=== PATIENT | female | born 1990 | race Caucasian/White ===

== ENCOUNTER 2018-01-13 21:15 | Emergency (ER) | payer BC ==
[2018-01-13 21:28] VITALS: RESP 18
[2018-01-13] MEDS ORDERED: OFLOXACIN 0.3% OPHTH DROPS 5 ML BOTTLE RIGHT EAR STA (22:56)
[2018-01-13] MEDS ORDERED: AMOXIC-POT CLAV 875MG STARTER 2 EACH TABLET PO STA (22:56)
[2018-01-13] MEDS ORDERED: IBUPROFEN 600 MG TAB PO STA (22:58)
--- NOTE | 2018-01-13 23:01 | ED ---
General Adult HPI - General Chief complaint: ENT Stated complaint: ear pain Time Seen by Provider: 01/13/18 22:17 Source: patient, RN notes reviewed Mode of arrival: ambulatory Limitations: no limitations - History of Present Illness Initial comments: 27-year-old female presents to the emergency department for a chief complaint of right ear pain 8 hours. Patient states she has been having congestion for the past week and started to develop ear pain earlier today. Patient states over the past few hours it has gotten worse. Patient admits to a sore throat and cough. Patient states she had a fever a few days ago but it has since resolved. Patient states the pain is radiating into her jaw. Patient has no other complaints at this time including shortness of breath, chest pain, abdominal pain, nausea or vomiting, headache, or visual changes. - Related Data Home Medications Medication Instructions Recorded Confirmed Ibuprofen [Motrin Ib] 800 mg PO TID PRN 01/13/18 01/13/18 Pseudoephedrine HCl [Sudafed] 30 mg PO Q4HR PRN 01/13/18 01/13/18 SUMAtriptan SUCC/NAPROXEN SOD 1 tab PO DAILY PRN 01/13/18 01/13/18 [Treximet 85-500 mg Tablet] Previous Rx's Medication Instructions Recorded Amoxicillin/Potassium Clav 1 tab PO Q12HR 10 Days #20 tab 01/13/18 [Augmentin 875-125 Tablet] Ofloxacin 0.3% Ophth Soln [Ocuflox 10 drops RIGHT EAR BID 7 Days ml 01/13/18 Ophth Soln] Allergies Allergy/AdvReac Type Severity Reaction Status Date / Time No Known Allergies Allergy Verified 01/13/18 21:54 Review of Systems ROS Statement: Those systems with pertinent positive or pertinent negative responses have been documented in the HPI. ROS Other: All systems not noted in ROS Statement are negative. Past Medical History Past Medical History: No Reported History History of Any Multi-Drug Resistant Organisms: None Reported Additional Past Surgical History / Comment(s): TENDON REPAIR RIGHT ANKLE Past Psychological History: No Psychological Hx Reported Smoking Status: Never smoker Past Alcohol Use History: None Reported Past Drug Use History: None Reported General Exam Limitations: no limitations General appearance: alert, in no apparent distress Head exam: Present: atraumatic, normocephalic, normal inspection Eye exam: Present: normal appearance, PERRL, EOMI. Absent: scleral icterus, conjunctival injection, periorbital swelling ENT exam: Present: normal oropharynx, mucous membranes moist. Absent: TM's normal bilaterally (TM is erythematous in the right ear), normal external ear exam (pain with palpation of pinna and tragus. Erythema with mild Edema of external ear canal, patent.), other (no tenderness to the mastoid process. ) Neck exam: Present: normal inspection, full ROM. Absent: tenderness, meningismus, lymphadenopathy Respiratory exam: Present: normal lung sounds bilaterally. Absent: respiratory distress, wheezes, rales, rhonchi, stridor Cardiovascular Exam: Present: regular rate, normal rhythm, normal heart sounds. Absent: systolic murmur, diastolic murmur, rubs, gallop, clicks Course Vital Signs 01/13/18 01/13/18 21:25 23:50 Temperature 98.0 F 98.4 F Pulse Rate 75 67 Respiratory 18 18 Rate Blood Pressure 126/78 117/77 O2 Sat by Pulse 99 97 Oximetry Medical Decision Making - Medical Decision Making 27-year-old female presents to the emergency department for a chief complaint of right ear pain 8 hours. Patient states she has had congestion for the past week which is resolving. Patient has also had a cough and sore throat which are also resolving. However today patient started to have right ear pain. She went swimming and the pain was worse thereafter. Patient is afebrile in the emergency department. On exam patient has an erythematous tympanic membrane as well as an erythematous and edematous external ear canal. Ear canal is patent. Full range of motion of the neck. No tender lymphadenopathy. I did offer strep test and chest x-ray which patient refused. Patient will be given Floxin eardrops as well as Augmentin to treat both otitis externa and otitis media. Patient was given those in the emergency department as it was late at night and she could not get them filled at her pharmacy. She was also given prescriptions and motrin. Denies chance of . She will follow up with primary care in 1-2 days. She will return to the emergency Department if she has any worsening symptoms. Disposition Clinical Impression: Otitis externa Disposition: HOME SELF-CARE Condition: Good Instructions: Otitis Externa (ED), Otitis Media (ED) Additional Instructions: Please take augmentin as directed. Please use 10 drops of ofloxacin twice daily in the right ear as directed. Please follow up with primary care in 1-2 days. Return to the emergency determine if you have any worsening symptoms or fevers or chills. Prescriptions: Amoxicillin/Potassium Clav [Augmentin 875-125 Tablet] 1 tab PO Q12HR 10 Days # 20 tab Ofloxacin 0.3% Ophth Soln [Ocuflox Ophth Soln] 10 drops RIGHT EAR BID 7 Days ml Is patient prescribed a controlled substance at d/c from ED?: No Referrals: Zain Caldwell MD [Primary Care Provider] - 1-2 days Time of Disposition: 23:01
[2018-01-13 23:50] VITALS: BP 117/77; PULSE 67; TEMP 98.4
== END 2018-01-13 23:54 | disposition home or self-care (01) ==
LOC: EC 21:15
DX: H60.91 Unspecified otitis externa, right ear (principal); J02.9 Acute pharyngitis, unspecified; R05 Cough
CPT/HCPCS: 99282